=== PATIENT | female | born 1975 | race Caucasian/White ===

== ENCOUNTER → 2017-09-16 | Outpatient (CLI) | payer MEDICAID ==
[~2017-09-16] MED LIST: BISA-71 PO; CHOL100059 PO; HYDR-4225 PO; METF-410 PO; OMEP-125 PO; PRAZ1CAP26 PO; SERT-184 PO
--- NOTE | 2017-09-16 13:16 | RADIOLOGY IMAGING REPORT ---
FACILITY: [facility] PATIENT NAME: Paz Hernandez : 1975 MR: [id number] V: [id number] EXAM DATE: ORDERING PHYSICIAN: LÁZARO SMITH TECHNOLOGIST: Location: [facility] - [place] Patient: Paz Hernandez : 1975 Visit/Account:[id number] Date of Sevice: 09/16/2017 ABDOMEN PELVIS ESWL CYSTO W/O HISTORY: Renal calculi TECHNIQUE: Axial images were obtained through the abdomen and pelvis without intravenous contrast . One of the following dose optimization techniques was utilized in the performance of this exam: autom ated exposure control; adjustment of the mA and/or kv according to patient size; or use of iterative reconstruction technique. Specific details can be referenced in the facility's radiology CT exam oper ational policy. CONTRAST: None COMPARISON: CT abdomen/pelvis with contrast 11/09/2016 FINDINGS: Visualized lung bases: Negative. Hepatobiliary: Hepatomegaly measuring 19 cm in length with diffuse steatosis. Spleen: Negative. Adrenals: Negative. Pancreas: Negative. Kidneys/ureters/bladder: Mildly enlarging staghorn calculus at the junction of the mid--lower pole o f the left kidney measuring 14 x 13 x 8 mm, previously 12 x 12 x 8 mm. There are 2, stable additional small left renal calculi measuring up to 3 mm. Several punctate nonobstructing right renal calculi. No bilateral ureteral calculus. No bladder calculus. No hydronephrosis. Bowel/peritoneum/mesentery: Negative Vessels: Negative. Lymph nodes: Negative. Pelvic genitourinary: The largest right ovarian cyst has resolved. Persistent 4.5 x 3.0 x 2.9 cm righ t ovarian cyst. Bones/body wall: Mild degenerative disc disease at L5-S1. Other findings: None significant IMPRESSION: 1. Mildly enlarging left mid--lower pole staghorn renal calculus measuring 14 x 13 x 8 mm. 2. Other stable bilateral renal calculi measuring up to 3 mm. No ureteral calculus or hydronephrosis. 3. Persistent 4.5 x 3.0 x 2.9 cm right ovarian cyst which has been followed on several pelvic ultraso und examinations. Report Dictated By: Yoshi Victor MD at 09/16/2017 1:02 PM Report E-Signed By: Yoshi Victor MD at 09/16/2017 1:13 PM WSN:[id number]
== END ==
LOC: CT 02:46
PROVIDERS: ATTEND Urology
DX: N20.0 Calculus of kidney (principal); N83.201 Unspecified ovarian cyst, right side
CPT/HCPCS: 74176

== ENCOUNTER 2017-09-20 02:38 | Day surgery (SDC) | payer MEDICAID, OTHER ==
[2017-09-15 09:21] LABS: PLATELET COUNT, AUTOMATED 406 K/uL (150-450)
[2017-09-15 09:30] LABS: INR 0.91
--- NOTE | 2017-09-17 15:43 | HISTORY AND PHYSICAL ---
DATE OF ADMISSION: September 20, 2017 CHIEF COMPLAINT Kidney stones. HISTORY OF PRESENT ILLNESS The patient is a 42-year-old white female with a history of kidney stones who was referred to the Urology Clinic from [facility] for above issue. She was originally seen in the Urology Clinic in mid June. At that time, she had some trace microscopic hematuria, but no signs of infection. She had had a prior CT scan performed in October of this past year which showed several stones in the left kidney, the largest measuring 12 x 8 mm. In addition, she had a 5 x 4 and a 2 x 3. She also had two punctate stones in the right kidney. The patient states that she has had a stone since 2008 and apparently underwent left stent placement with ureteroscopy in [place] at that time. She also had some followup with a urologist. She apparently had a 24-hour urine evaluation, but is unsure of the results. She was not given any medicines. She is unable to obtain these records. Her films were shown to the patient and options discussed, and those were primarily to be a percutaneous nephrolithotomy versus ureteral stent placement with extracorporeal shock wave lithotripsy with possible staged ureteroscopy. She has elected to undergo the latter and is now being brought to the operating room for the same. PAST MEDICAL HISTORY * Noninsulin-dependent diabetes. * Hypertension. * Anxiety. * Gastroesophageal reflux disease with irritable bowel syndrome. * Polycystic ovarian disease. * Kidney stones. PAST SURGICAL HISTORY * 2008. * Left double J stent placement with extracorporeal shock wave lithotripsy 2008. * Tonsillectomy. ALLERGIES No known drug allergies. CURRENT MEDICINES * Multivitamins. * Vistaril. * Metformin. * Omeprazole. * Prazosin. * Sertraline. * Kaopectate p.r.n. FAMILY HISTORY Noncontributory. SOCIAL HISTORY The patient lives in [place], [place]. She does use tobacco, but denies ethanol or illicit drug use. REVIEW OF SYSTEMS The patient denies chest pain, shortness of breath, nausea, vomiting, fever, chills, bleeding disorder, chronic headaches, or liver disease. PHYSICAL EXAMINATION GENERAL: The patient is a moderately obese white female in no acute distress. HEENT: Normocephalic, atraumatic. CHEST: Clear to auscultation bilaterally. CARDIOVASCULAR: Regular rate and rhythm. ABDOMEN: Soft, nontender. No masses are palpated. GENITOURINARY: Deferred. EXTREMITIES: Without clubbing, cyanosis, or edema. NEUROLOGIC: Nonfocal. LABORATORY DATA WBC of 13.4 with a hematocrit of 42%, platelet count of 406,000. She has no left shift on her differential. Her PT and INR are normal. Her urinalysis reveals 7 red blood cells per high-power field with 9 WBCs per high-power field with negative bacteria. Urine culture is pending. A repeat low-dose CT scan was performed which showed approximately three punctate calcifications in the right side. Her left lower pole partial staghorn has slightly increased and now measures 14 x 13 x 8 mm in size. In addition, she has a 6 x 5 mm stone below this and a 2 mm stone in the upper pole. IMPRESSION A 42-year-old white female with a history of a kidney stone, now with left partial staghorn calculus measuring 14 mm in greatest dimension in addition to a 6 x 5 mm stone. PLAN We will perform anesthetic cystoscopy with a left stent placement, followed by extracorporeal shock wave lithotripsy. The patient understands given her stone burden, the density of her stones of approximately 1200, and her obesity, the success rate for a lithotripsy at this location will be decreased, and she will likely need a followup lithotripsy and/or a staged type of ureteroscopy to render her stone-free. SONA
[~2017-09-20] VITALS: Ht 170.2 cm; Wt 120.2 kg
[2017-09-20] MEDS ORDERED: PROPOFOL EMUL(*) 10MG/ML 20 ML 20 ML ONE (08:01)
[2017-09-20] MEDS ORDERED: LIDOCAINE MPF 1% 5 ML VIAL ONE (08:01)
[2017-09-20] MEDS ORDERED: fentaNYL CITR 100 MCG/2 ML AMP ONE ×2 (08:03→13:39)
[2017-09-20] MEDS ORDERED: FAMOTIDINE 20 MG TAB PO ONE (09:40)
[2017-09-20 09:58] VITALS: BP 141/82
[2017-09-20] MEDS ORDERED: ceFAZolin(*) 2GM/D5W 50ML 50 ML IVPB ONE (10:00)
[2017-09-20] MEDS ORDERED: MIDAZOLAM 2 MG/2 ML VIAL IVP ONE (10:00)
[2017-09-20] MEDS ORDERED: LIDOCAINE/SOD BICARB 8.4% SYR ID ONE (10:00)
[2017-09-20] MEDS ORDERED: NORMOSOL R SOLN(*) 1000 ML BAG 1,000 ML IV PRN (10:00)
[2017-09-20] MEDS ORDERED: ONDANSETRON 4 MG/2 ML VIAL ONE (11:03)
[2017-09-20] MEDS ORDERED: DEXAMETHASONE SOD PHOS 10MG/ML ONE (11:03)
[2017-09-20] MEDS ORDERED: KETAMINE HCL 200 MG/20 ML MDV ONE (12:00)
[2017-09-20] MEDS ORDERED: ePHEDrine 25 MG/5 ML DISP.SYR IVP ONE (12:27)
[2017-09-20] MEDS ORDERED: KETOROLAC 30 MG/ML VIAL ONE (12:43)
[2017-09-20] MEDS: fentaNYL CITR 100 MCG/2 ML AMP ONE (13:19)
[2017-09-20] MEDS ORDERED: BELLADONNA ALK/OPIUM 60MG SUPP PR ONE (13:21)
[2017-09-20] MEDS ORDERED: OXYBUTYNIN CHL XL 5 MG TABCR PO ONE (13:26)
[2017-09-20] MEDS ORDERED: DOCU-416 PO (13:36)
[2017-09-20] MEDS ORDERED: HYDR-4309 PO (13:36)
[2017-09-20] MEDS ORDERED: OXYB10TA21 PO (13:37)
[2017-09-20] MEDS ORDERED: TAMS0.4C25 PO (13:41)
[2017-09-20] MEDS ORDERED: PHEN200T32 PO (13:42)
[2017-09-20] MEDS ORDERED: APAP/HYDROCODONE 325/5 TAB ONE ×2 (13:51→14:53)
[2017-09-20 14:07] VITALS: BP 113/68
[2017-09-20 14:33] VITALS: BP 130/73
[2017-09-20 14:37] VITALS: BP 127/75
[2017-09-20 14:40] VITALS: BP 122/78
--- NOTE | 2017-09-21 12:20 | OPERATIVE REPORT 1 ---
EVENT DATE: September 20, 2017 SURGEON: Humberto Verma MD ANESTHESIOLOGIST: Herminio Guillen MD ANESTHESIA: General PREOPERATIVE DIAGNOSIS Left lower pole partial staghorn calculus. POSTOPERATIVE DIAGNOSIS Left lower pole partial staghorn calculus. PROCEDURE PERFORMED 1. Cystoscopy with left internal double J ureteral stent placement. 2. Left lower pole extracorporeal shockwave lithotripsy. ESTIMATED BLOOD LOSS Minimal. IV FLUIDS Crystalloids. DRAINS 6 Haitian x 26 cm Contour stent on left. COMPLICATIONS None. CONDITION Patient taken to the recovery room awake and in stable condition. STATEMENT OF MEDICAL NECESSITY Patient is a 42-year-old female who was diagnosed with a partial staghorn calculus in October of this past year. She was seen in the urology clinic approximately 6 weeks ago. her films were reviewed and options discussed. Her stone was approximately 14 mm in greatest dimension. Primary treatment options of percutaneous nephrolithotomy versus lithotripsy with possible ureteroscopy were discussed. She desired a minimally invasive procedure, and therefore has elected to undergo stent placement followed by lithotripsy with demonstrating that she may need followup ureteroscopy to be stone free. She is now being brought to the operating room for planned procedure. DESCRIPTION OF PROCEDURE PERFORMED Patient was brought to the operating room, and after general anesthetic was obtained, she was placed in the dorsal lithotomy position on the cystoscopic table and prepped and draped sterilely. Anesthetic cystoscopy was performed with the 21 Haitian rigid Craig sheath and 30 degrees lens. She had a normal- appearing urethra. Her bladder mucosa was normal with slit-like ureteral orifices. She had no bladder tumors or other lesions. The left ureteral orifice was cannulated with a 6 Haitian open end access catheter, which was advanced to approximately the mid ureter. This was then used to a place a 0.035 type sensor wire. The access catheter was removed and the wire was used to place a 6 Haitian x 26 cm Microvasive Contour stent. The wire was removed. She was noted to have good curling in the upper pole calyx by fluoroscopy and good curling in the bladder by direct vision. The patient's bladder was drained through the cystoscopic sheath. She was then repositioned supine on the table. Lithotripsy cross hairs were placed on the stone in two planes. Treatment was begun at a power setting of 1 and increased to a power setting of 3 over the first 300 shocks. A three-minute pause was then performed, and treatment resumed at a rate of 90 shocks per minute to a maximum power setting of 8. Intermittent two-plane fluoroscopy was used to ensure the cross hairs remained on the stone and stone fragment pile throughout treatment. Fragmentation was first noted at approximately 600-700 shocks. At the conclusion of treatment after 3000 shocks, no significant remaining stone fragments could be identified. At the conclusion of treatment, she was awakened in the operating room and taken to the recovery area in stable condition. The plan will be to allow the patient to be discharged home today on [place], Colace, Pyridium, Ditropan and Flomax. We will have her return to the operating room in approximately 4-6 weeks for stent removal with possible followup ureteroscopy and/or lithotripsy as indicated. SONA
== END 2017-09-20 14:07 | disposition home or self-care (01) ==
LOC: OR 02:38
PROVIDERS: ATTEND Urology
DX: N20.0 Calculus of kidney (principal); I10 Essential (primary) hypertension; E11.9 Type 2 diabetes mellitus without complications; F41.9 Anxiety disorder, unspecified; K21.9 Gastro-esophageal reflux disease without esophagitis; K58.9 Irritable bowel syndrome, unspecified; Z79.899 Other long term (current) drug therapy; E66.01 Morbid (severe) obesity due to excess calories
CPT/HCPCS: 36415; 36416; 50590; 52332; 81001; 81025; 82948; 85025; 85610; C1758; C1769; C1894; C2617; J1100; J1885; J2001; J2405; J2704; J3010; J3490; J0690

== ENCOUNTER → 2017-09-28 | Outpatient (CLI) | payer MEDICAID ==
[~2017-09-28] MED LIST changes: +DOCU-416 PO; +HYDR-4309 PO; +OXYB10TA21 PO; +PHEN200T32 PO; +TAMS0.4C25 PO
--- NOTE | 2017-09-28 10:23 | RADIOLOGY IMAGING REPORT ---
FACILITY: [facility] PATIENT NAME: Paz Hernandez : 1975 MR: [id number] V: [id number] EXAM DATE: ORDERING PHYSICIAN: LÁZARO SMITH TECHNOLOGIST: Location: [facility] Patient: Paz Hernandez : 1975 Visit/Account:[id number] Date of Sevice: 09/28/2017 Exam type: KUB SINGLE VIEW ABDOMEN History: Check stent placement Comparison: None. Findings: There is a double pigtail ureteral stent coiled over the lower pelvis presumably within the bladder. Bowel gas pattern is nonspecific. No pathologic intra-abdominal calcifications are seen. IMPRESSION: Double pigtail ureteral stent is coiled over the lower pelvis presumably within the bladder Results were called to LÁZARO SMITH at 09/28/2017 10:19 AM. Report Dictated By: Blanquita Chen MD at 09/28/2017 10:13 AM Report E-Signed By: Blanquita Chen MD at 09/28/2017 10:19 AM WSN:[id number]
--- NOTE | 2017-09-28 11:36 | RADIOLOGY IMAGING REPORT ---
FACILITY: [facility] PATIENT NAME: Paz Hernandez : 1975 MR: [id number] V: [id number] EXAM DATE: ORDERING PHYSICIAN: LÁZARO SMITH TECHNOLOGIST: Location: [facility] [place] Patient: Paz Hernandez : 1975 Visit/Account:[id number] Date of Sevice: 09/28/2017 ABDOMEN/PELVIS W/O CONTRAST HISTORY: Check stent placement TECHNIQUE: Axial images acquired through the abdomen/pelvis. Coronal and sagittal reformatting also performed. No IV contrast administered. Dose Lowering Technique One of the following dose optimization techniques was utilized in the performance of this exam: Autom ated exposure control; adjustment of the mA and/or kV according to the patient's size; or use of an i terative reconstruction technique. Specific details can be referenced in the facility's radiology C T exam operational policy. COMPARISON: September 16, 2017 FINDINGS: Visualized lung bases: Negative. Hepatobiliary: There is diffuse hepatic steatosis with hepatomegaly Spleen: Negative. Adrenals: Negative. Pancreas: Negative. Kidneys ureters and bladder: Several punctate nonobstructing calculi again seen in the right renal co llecting system. Previously noted staghorn calculus in the mid to lower pole the left kidney is no longer seen. There is a 2 mm nonobstructing calculus upper pole calyx of the left kidney too nonobstructing calculi low er pole calyces the left kidney each measuring approximately 2 mm. There is a 2 mm calculus in the d istal left ureter just proximal to the left UVJ. There is very mild fullness of the left renal colle cting system. The ureteral stent is coiled within the bladder Genitalia: 4.6 x 2.9 x 3 cm right ovarian cyst appears relatively unchanged. Probable nabothian cys ts in the cervix GI: Negative. Vessels/spaces/nodes: Negative. Bones/soft tissues: Small umbilical hernia containing fat spondylotic changes L5-S1 Additional findings: None pertinent. IMPRESSION: Producing noted left staghorn calculus is no longer seen There are three nonobstructing calculi seen in the left renal collecting system each measuring 2 mm a nd 2 mm calculus in the distal left ureter just proximal to the left UVJ producing very mild fullness of the left renal collecting system. Several punctate nonobstructing calculi again seen in the right renal collecting system Ureteral stent is coiled within the bladder 4.6 x 2.9 x 3 cm right ovarian cyst appears relatively unchanged. Diffuse hepatic steatosis with hepatomegaly. Results were called to LÁZARO SMITH at 09/28/2017 11:29 AM. Report Dictated By: Blanquita Chen MD at 09/28/2017 11:17 AM Report E-Signed By: Blanquita Chen MD at 09/28/2017 11:30 AM WSN:[id number]
== END ==
LOC: RAD 09:29
PROVIDERS: ATTEND Urology
DX: N20.0 Calculus of kidney (principal); N83.201 Unspecified ovarian cyst, right side; N88.8 Other specified noninflammatory disorders of cervix uteri; K42.9 Umbilical hernia without obstruction or gangrene; Z96.0 Presence of urogenital implants; R16.0 Hepatomegaly, not elsewhere classified
CPT/HCPCS: 74018; 74176

== ENCOUNTER 2017-09-30 01:20 | Day surgery (SDC) | payer MEDICAID ==
--- NOTE | 2017-09-29 17:59 | HISTORY AND PHYSICAL ---
DATE OF ADMISSION: September 30, 2017 CHIEF COMPLAINT Kidney stones with migrated left ureteral stent. HISTORY OF PRESENT ILLNESS Patient is a 42-year-old white female with a history of kidney stones, who was noted to have significant stone volume on a CT scan. Her largest stone was approximately 14 mm in greatest dimension, in addition to having a 5 x 5 and 3 x 3 mm stones. She was subsequently taken to the operating room on September 20, and underwent left ureteral stent placement followed by extracorporeal shock wave lithotripsy. The patient originally did extremely well postoperatively. However, on September 26, while traveling by car, she experienced significant left flank pain with more irritative voiding symptoms. Her symptoms did not improve over the next 24 hours, and she was seen in the Urology Clinic on September 28. At that time a KUB was performed which showed a distal migration of the entire stent within the bladder. She had no clearly visible stones on this x-ray. Therefore a low-dose CT scan was performed and she was noted to have almost complete resolution of her prior kidney stones. She had one to two small fragments in the left kidney, and a 2 mm fragment just at the left UVJ. The stent was seen completely curled in the bladder. Attempted stent removal by cystoscopic extraction was performed in the office on that day, however, his was aborted secondary to patient anxiety and discomfort after only 30 seconds of procedure time. She was then subsequently scheduled for OR anesthetic cystoscopy with retrieval of stent at this time. PAST MEDICAL HISTORY * Non-insulin dependent diabetes. * Hypertension. * Anxiety. * Gastroesophageal reflux disease with irritable bowel syndrome. * Polycystic ovarian disease. * Obesity. * Kidney stones. PAST SURGICAL HISTORY * in 2008. * Left double-J stent placement with extracorporeal shock wave lithotripsy in 2008. * Tonsillectomy. * Left double-J placement with extracorporeal shock wave lithotripsy on August. ALLERGIES No known drug allergies. CURRENT MEDICATIONS * Multivitamin. * Vistaril. * Metformin. * Omeprazole. * Prazosin. * Kaopectate p.r.n. * Sertraline. SOCIAL HISTORY Patient lives in [place], [place]. She reports tobacco use. FAMILY HISTORY Noncontributory. REVIEW OF SYSTEMS Patient denies chest pain, productive cough, fevers, chills, nausea, vomiting, chronic headaches or bleeding disorder. PHYSICAL EXAMINATION GENERAL: Patient is a moderately obese white female in no acute distress. HEENT: Normocephalic, atraumatic. CHEST: Clear to auscultation bilaterally. CARDIOVASCULAR: Regular rate and rhythm. ABDOMEN: Soft, nontender. No masses are palpated. GENITOURINARY: Exam deferred to the OR. EXTREMITIES: Exam without clubbing, cyanosis or edema. NEUROLOGIC: Exam is nonfocal. IMPRESSION A 42-year-old white female status post left extracorporeal shockwave lithotripsy on September 20, now with a distally migrated left ureteral stent in the bladder. PLAN We will perform anesthetic cystoscopy with removal of migrated stent from bladder. [facility]
[~2017-09-30] VITALS: Ht 170.2 cm; Wt 119.3 kg
[2017-09-30] MEDS ORDERED: NORMOSOL R SOLN(*) 1000 ML BAG 1,000 ML IV PRN (13:50)
[2017-09-30] MEDS ORDERED: LIDOCAINE/SOD BICARB 8.4% SYR ID ONE (13:50)
[2017-09-30] MEDS ORDERED: ceFAZolin(*) 1 GM VIAL 1 GM in NS(*) 0.9% 100 ML ADDVANT BAG 100 ML IV ONE (13:50)
[2017-09-30] MEDS ORDERED: MIDAZOLAM 2 MG/2 ML VIAL IVP PRN (13:50)
[2017-09-30] MEDS: FAMOTIDINE 20 MG TAB PO ONE ×2 (13:50→15:16)
[2017-09-30] MEDS ORDERED: ceFAZolin 1 GM VIAL ONE (15:04)
[2017-09-30] MEDS ORDERED: ONDANSETRON 4 MG/2 ML VIAL ONE (15:13)
[2017-09-30] MEDS ORDERED: PROPOFOL EMUL(*) 10MG/ML 20 ML 20 ML ONE (15:13)
[2017-09-30] MEDS ORDERED: fentaNYL CITR 100 MCG/2 ML AMP ONE (15:13)
[2017-09-30] MEDS ORDERED: DEXAMETHASONE SOD 4 MG/ML VIAL ONE (15:13)
[2017-09-30] MEDS ORDERED: LIDOCAINE MPF 1% 5 ML VIAL ONE (15:13)
[2017-09-30 15:30] VITALS: BP 124/86
[2017-09-30] MEDS ORDERED: BELLADONNA ALK/OPIUM 60MG SUPP PR ONE (16:46)
[2017-09-30] MEDS ORDERED: KETAMINE HCL 200 MG/20 ML MDV ONE (17:00)
[2017-09-30 17:30] VITALS: BP 107/62
--- NOTE | 2017-10-01 03:53 | OPERATIVE REPORT 1 ---
EVENT DATE: September 30, 2017 SURGEON: Humberto Verma MD ANESTHESIOLOGIST: William Hassan MD ANESTHESIA: General. PREOPERATIVE DIAGNOSIS Left migrated ureteral stent in the bladder. POSTOPERATIVE DIAGNOSIS Left migrated ureteral stent in the bladder. PROCEDURE PERFORMED Cystoscopy with grasping and removal of left distally migrated ureteral stent in bladder. ESTIMATED BLOOD LOSS Minimal. IV FLUIDS Crystalloid. DRAINS None. COMPLICATIONS None. CONDITION Patient taken to recovery room awake and in stable condition. STATEMENT OF MEDICAL NECESSITY Patient is a 42-year-old white female with a history of left kidney stones who approximately 10 days ago underwent left ureteral stent placement followed by extracorporeal shockwave lithotripsy. The patient was doing well postoperatively until this past weekend, when she experienced sudden onset of left flank pain with associated irritative voiding symptoms. When seen in the urology clinic on Wednesday, a low-dose CT scan was performed, which showed distal migration of her left ureteral stent down into the bladder. Her left stone burden was almost completely clear with only one to two small 2 mm fragments in the kidney and a 2 mm fragment at the left UVJ. Attempted stent removal in the office was aborted secondary to patient discomfort, and she is therefore being brought to the operating room now for stent removal. DESCRIPTION OF PROCEDURE PERFORMED Patient was brought to the operating room. After general anesthetic was obtained, she was placed in the dorsal lithotomy position, prepped and draped in usual sterile manner. Anesthetic cystoscopy was performed with the 21- Hungarian rigid sheath and 30 degree lens. The left stent was seen completely within the bladder after distal migration. It was grasped at one end and gently removed intact. Following this, the scope was reintroduced. There was no evidence of injury or other abnormalities. The patient's bladder was drained through the cystoscopic sheath. A B and O suppository was given per rectally at the conclusion of the case. She was awakened in the operating room and taken to the recovery area in stable condition. The plan will be to allow the patient to be discharged home. We will see her in the urology clinic in followup in approximately six to eight with a followup low-dose CT scan to evaluate treatment results and ensure she has no hydronephrosis. If she is deemed significantly stone free, we will proceed with metabolic evaluation at that time. SONA
== END 2017-09-30 17:30 | disposition home or self-care (01) ==
LOC: OR 01:20
PROVIDERS: ATTEND Urology
DX: N20.0 Calculus of kidney (principal); E11.9 Type 2 diabetes mellitus without complications
CPT/HCPCS: 36416; 52310; 81025; 82948; J0690; J1100; J2001; J2250; J2405; J2704; J3010; J3490; J7050

== ENCOUNTER → 2017-10-27 | Outpatient (CLI) | payer MEDICAID ==
[~2017-10-27] MED LIST changes: +MULT-1381 PO
[2017-10-27 12:26] LABS: LDL CHOLESTEROL 135 mg/dl
[2017-10-27 12:29] LABS: PLATELET COUNT, AUTOMATED 453 K/uL (150-450)
== END ==
LOC: LAB 11:43
PROVIDERS: ATTEND Emergency Medicine
DX: R10.819 Abdominal tenderness, unspecified site (principal); R73.03 Prediabetes; E66.01 Morbid (severe) obesity due to excess calories
CPT/HCPCS: 36415; 82040; 82247; 82310; 82374; 82435; 82465; 82565; 82947; 83036; 83718; 84075; 84132; 84155; 84295; 84443; 84450; 84460; 84478; 84520; 85025; 87338

== ENCOUNTER → 2017-10-28 | Outpatient (CLI) | payer MEDICAID | LOC: LAB 08:43 | PROVIDERS: ATTEND Emergency Medicine | DX: Z02.9 Encounter for administrative examinations, unspecified (principal) ==

== ENCOUNTER → 2017-11-12 | Outpatient (CLI) | payer MEDICAID ==
[~2017-11-12] MED LIST changes: -METF-410 PO; +METF-411 PO
--- NOTE | 2017-11-12 15:24 | RADIOLOGY IMAGING REPORT ---
FACILITY: [facility] - [place] PATIENT NAME: Paz Hernandez : 1975 MR: [id number] V: [id number] EXAM DATE: ORDERING PHYSICIAN: HU SALINAS TECHNOLOGIST: Location: [facility] [place] Patient: Paz Hernandez : 1975 Visit/Account:[id number] Date of Sevice: 11/12/2017 THYROID HISTORY: Thyroid enlargement COMPARISON: None. FINDINGS: SIZE: Right lobe: 5.2 x 1.5 x 2.4 cm Left lobe: 5.3 x 1.5 x 2.1 cm Isthmus: 5 mm PARENCHYMA: Mildly heterogeneous NODULES: Right lobe: * The superior to mid pole of the right lobe there is a well-circumscribed hypoechoic nodule measuri ng 1.2 x 0.9 x 1.1 cm area in the mid right lobe is a well-circumscribed hypoechoic nodule measuring 1.4 x 0.9 x 1.2 cm. Other subcentimeter solid nodules are identified in the right lobe. Left lobe: * There are scattered cysts and subcentimeter solid nodules identified in the left lobe and subcenti meter solid nodules identified in the isthmus Isthmus: * Subcentimeter solid nodules VASCULARITY: Within normal limits. ADDITIONAL FINDINGS: None. IMPRESSION: There are multiple bilateral thyroid nodules as described above. In the right lobe there are two hyp oechoic for which ultrasound-guided fine-needle aspiration could be performed REFERENCE: 2015 [place] [employer] Management Guidelines for Adult Patients with Thyroid Nodules and D ifferentiated Thyroid Cancer: The [place] [employer] Guidelines Task Force on Thyroid Nodul es and Differentiated Thyroid Cancer. SONOGRAPHIC PATTERNS: * Benign: Purely cystic nodules (no solid component); estimated risk of malignancy <1 percent; no bi opsy recommended. * Very Low Suspicion: Spongiform or partially cystic nodules without any of the sonographic features described in low, intermediate, or high suspicion patterns; estimated risk of malignancy <3 percent; consider FNA at > 2 cm (Observation without FNA is also a reasonable option). * Low Suspicion: Isoechoic or hyperechoic solid nodule, or partially cystic nodule with eccentric so lid areas, without microcalcification, irregular margin or ETE (extra-thyroidal extension), or taller than wide shape; estimated risk of malignancy 5-10 percent; recommend FNA at >1.5 cm. * Intermediate Suspicion: Hypoechoic solid nodule with smooth margins without microcalcifications, E TE (extra-thyroidal extension), or taller than wide shape; estimated risk of malignancy 10-20 percent ; recommend FNA at > 1 cm. * High Suspicion: Solid hypoechoic nodule or solid hypoechoic component of a partially cystic nodule with one or more of the following features: irregular margins (infiltrative, microlobulated), microc alcifications, taller than wide shape, rim calcifications with small extrusive soft tissue component, evidence of ETE (extra-thyroidal extension); estimated risk of malignancy >70-90 percent; recommend FNA at > 1 cm. NOTES: * Although a sonographically suspicious subcentimeter thyroid nodule without evidence of extrathyroi мария extension or sonographically suspicious lymph nodes may be observed with close sonographic follow -up rather than pursuing immediate FNA, patient age and preference may modify decision-making. A > 50% interval increase in nodule volume and/or development of new suspicious sonographic features are felt to be a valid reasons for potential re-aspiration of a nodule previously shown to have benig n FNA cytology. Report Dictated By: Blanquita Chen MD at 11/12/2017 3:15 PM Report E-Signed By: Blanquita Chen MD at 11/12/2017 3:21 PM WSN:[email or web address]
== END ==
LOC: US 03:12
PROVIDERS: ATTEND Emergency Medicine
DX: E04.2 Nontoxic multinodular goiter (principal)
CPT/HCPCS: 76536

== ENCOUNTER 2017-12-02 13:39 | Outpatient (RCR) | payer MEDICAID ==
[2017-12-02 08:38] LABS: PLATELET COUNT, AUTOMATED 452 K/uL (150-450)
[2017-12-02 08:46] LABS: INR 0.9
--- NOTE | 2017-12-03 12:07 | RADIOLOGY IMAGING REPORT ---
[facility] PATIENT NAME: Paz Hrenandez : 1975 MR: [id number] V: [id number] EXAM DATE: ORDERING PHYSICIAN: HU SALINAS TECHNOLOGIST: Location: [facility] [place] Patient: Paz Hernandez : 1975 Visit/Account:[id number] Date of Sevice: 12/03/2017 Ultrasound guided thyroid fine-needle aspiration Indication: Hypoechoic right thyroid nodules. Comparison: None available Findings: After informed consent was obtained, the patient was prepped and draped in the standard gisele rile sterile fashion. Local anesthesia was obtained with 1% lidocaine. 2 adjacent hypoechoic nodules are seen within the midportion of the right thyroid lobe. Attention wa s first given to the more superior and exophytic nodule. A total of 5 25-gauge fine-needle aspirates were obtained. The samples were given to a member of the pathology team for processing. Attention was then given to the more inferior and nonexophytic nodule. Total of 5 25-gauge fine-needle aspirat es were obtained. Samples were given to a member of the pathology team for processing. All needles were removed without complication. Pathologist deemed the samples adequate for interpretation. There were no immediate complications and the patient tolerated the procedure well. IMPRESSION: 1. Successful ultrasound guided fine needle aspiration of 2 adjacent hypoechoic right midpole thyroid nodules. Report Dictated By: Eamon Hernandez at 12/03/2017 12:01 PM Report E-Signed By: Eamon Hernandez at 12/03/2017 12:03 PM WSN:[id number]
[2017-12-10] MEDS ORDERED: HYDR-4225 PO (09:33)
[2017-12-10] MEDS ORDERED: FLUO-202 PO ×2 (09:33→14:48)
[2017-12-10] MEDS ORDERED: METF-411 PO (09:33)
[2017-12-10] MEDS ORDERED: LOSA-51 PO ×2 (11:03→14:48)
== END 2017-12-03 18:00 | disposition home or self-care (01) ==
LOC: US 13:39 → EDSTATUS 13:39 → US 12-03 18:00
PROVIDERS: ATTEND Emergency Medicine
DX: E04.1 Nontoxic single thyroid nodule (principal)
CPT/HCPCS: 10022; 36415; 74176; 76942; 83540; 83550; 85025; 85610; 85730; 88104; 88172

== ENCOUNTER → 2017-12-02 | Outpatient (CLI) | payer MEDICAID ==
[~2017-12-02] MED LIST changes: +DEX1 PO; +DIA5 PO
--- NOTE | 2017-12-02 13:05 | RADIOLOGY IMAGING REPORT ---
FACILITY: [facility] PATIENT NAME: Paz Hernandez : 1975 MR: [id number] V: [id number] EXAM DATE: ORDERING PHYSICIAN: LÁZARO SMITH TECHNOLOGIST: Location: Patient: Paz Hernandez : 1975 Visit/Account:[id number] Date of Sevice: 12/02/2017 ABDOMEN PELVIS ESWL CYSTO W/O HISTORY: Kidney stones TECHNIQUE: Axial images acquired through the abdomen/pelvis. Coronal and sagittal reformatting also performed. No IV contrast administered. Dose Lowering Technique One of the following dose optimization techniques was utilized in the performance of this exam: Autom ated exposure control; adjustment of the mA and/or kV according to the patient's size; or use of an i terative reconstruction technique. Specific details can be referenced in the facility's radiology C T exam operational policy. COMPARISON: CT September 28, 2017 FINDINGS: Visualized lung bases: Negative. Hepatobiliary: Hepatomegaly and diffuse hepatic steatosis. There are focal areas of fatty sparing a djacent to the falciform ligament Spleen: Negative. Adrenals: Negative. Pancreas: Negative. Kidneys ureters and bladder: There are small nonobstructing calculi seen in both renal collecting sys tems all measuring approximately 1 to 2 mm other than a single 3 mm calcification upper pole calyx of the left kidney there is no evidence of hydronephrosis or hydroureter Genitalia: Previously noted right ovarian cyst may represent two contiguous cysts and slightly incre ased in size measuring 5.3 x 3.2 x 2.9 cm GI: Negative. Vessels/spaces/nodes: Negative. Bones/soft tissues: Small umbilical hernia containing fat. Spondylotic changes L5-S1. Additional findings: None pertinent. IMPRESSION: Small nonobstructing calculi identified in the renal collecting systems bilaterally ranging in size f rom 1 to 2 mm other than a single 3 mm calcification in the upper pole of the left kidney. Previously noted right ovarian cyst may represent two contiguous cysts and slightly increased in size . Hepatomegaly with diffuse hepatic steatosis. Report Dictated By: Blanquita Chen MD at 12/02/2017 12:46 PM Report E-Signed By: Blanquita Chen MD at 12/02/2017 1:01 PM WSN:SO
== END ==
LOC: CT 00:18
PROVIDERS: ATTEND Urology
DX: N20.0 Calculus of kidney (principal); N83.201 Unspecified ovarian cyst, right side; R16.0 Hepatomegaly, not elsewhere classified; K76.0 Fatty (change of) liver, not elsewhere classified
CPT/HCPCS: 74176

== ENCOUNTER → 2017-12-11 | Outpatient (CLI) | payer MEDICAID ==
[~2017-12-11] MED LIST changes: +FLUO-202 PO; +LOSA-51 PO
== END ==
LOC: RESP 21:05
PROVIDERS: ATTEND Emergency Medicine
DX: G47.33 Obstructive sleep apnea (adult) (pediatric) (principal)

== ENCOUNTER → 2018-01-10 | Outpatient (CLI) | payer MEDICAID ==
[~2018-01-10] MED LIST changes: +CEPH500T7 PO; +CHOL10005 PO; +CHOL200074 PO; +FERR324T16 PO; +OMEP40CA48 PO
[2018-01-10 13:56] LABS: PLATELET COUNT, AUTOMATED 356 K/uL (150-450)
== END ==
LOC: LAB 13:41
PROVIDERS: ATTEND Emergency Medicine
DX: I10 Essential (primary) hypertension (principal); D72.829 Elevated white blood cell count, unspecified; L60.9 Nail disorder, unspecified
CPT/HCPCS: 36415; 82306; 82310; 82374; 82435; 82565; 82947; 83540; 83550; 84132; 84295; 84520; 85025

== ENCOUNTER 2018-01-25 00:54 | Day surgery (SDC) | payer MEDICAID ==
[~2018-01-25] VITALS: Ht 170.2 cm; Wt 119.3 kg
[~2018-01-25 00:54] MED LIST changes: +LIDOCAINE/SOD BICARB 8.4% SYR ID ONE; +NORMOSOL R SOLN(*) 1000 ML BAG 1,000 ML IV PRN
[2018-01-25 08:15] VITALS: BP 142/80
[2018-01-25] MEDS ORDERED: NORMOSOL R SOLN(*) 1000 ML BAG 1,000 ML IV PRN (09:10)
[2018-01-25] MEDS ORDERED: LIDOCAINE/SOD BICARB 8.4% SYR ID ONE (09:10)
[2018-01-25 11:20] VITALS: BP 118/58
[2018-01-25 11:24] VITALS: BP 118/58
--- NOTE | 2018-01-25 11:28 | Short(Outpt) Discharge Summary ---
Discharge Summary Reason for Hosp/Final Diag: (1) Dysphagia Status: Chronic Hospital Course & Plan: EGD partially completed but patient had retained, partially digested, food in her stomach and became an aspiration risk as she was coughing severely from the beginning of the procedure so the procedure was aborted. Her stomach and esophagus were only partially inspected and her duodenum was not inspected at all. No signs of aspiration during or after the case in spite of regurgitation during the procedure. (2) GERD (gastroesophageal reflux disease) Status: Chronic Departure Discharge to: Home, Self Care Discharge Instructions Home Meds Active Scripts Cholecalciferol (Vitamin D3) (VITAMIN D-3) 2,000 Unit Capsule, 2000 UNIT PO DAILY, #90 CAPSULE 0 Refills Prov:HU SALINAS MD 01/11/18 Cholecalciferol (Vitamin D3) (VITAMIN D3) 1,000 Unit Tablet, 1000 UNIT PO DAILY , #90 TAB 0 Refills Prov:HU SALINAS MD 01/11/18 Ferrous Sulfate (FERROUS SULFATE) 324 Mg Tablet.dr, 324 MG PO DAILY, #90 TAB 1 Refill Prov:HU SALINAS MD 01/11/18 Cephalexin 500 Mg Tab (KEFLEX 500 MG TAB) 500 Mg Tablet, 500 MG PO BID, #20 TAB Prov:HU SALINAS MD 01/10/18 Omeprazole (OMEPRAZOLE) 40 Mg Capsule.dr, 1 CAP PO BID, #60 CAP 3 Refills Take 1 capsule twice every day on an empty stomach and wait 30 minutes before eating Prov:ANGELICA JENKINS MD 12/31/17 Fluoxetine Hcl (PROZAC) 20 Mg Capsule, 20 MG PO QDAY, #30 CAPSULE 0 Refills Prov:SUN CRAWFORD DNP, FNP-GER 12/16/17 Losartan/Hydrochlorothiazide (LOSARTAN-HCTZ 50-12.5 MG TAB) 1 Each Tablet, 1 EACH PO QDAY, #30 TAB 0 Refills Prov:SUN CRAWFORD DNP, FNP-BC 12/10/17 Metformin Hcl (METFORMIN HCL) 500 Mg Tablet, 1 TAB PO BID, #180 TAB 3 Refills Prov:HU SALINAS MD 12/10/17 Reported Medications Hydroxyzine Hcl (HYDROXYZINE HCL) 25 Mg Tablet, 25 MG PO QID, TAB 12/10/17 Tamsulosin Hcl (FLOMAX) 0.4 Mg Cap.er.24h, 0.4 MG PO QDAY Y for ASSIST WITH URINE FLOW, #30 CAP TAKE WITH FOOD 09/20/17 Diet: Regular Activity: As Tolerated Special Instructions: Your upper endoscopy was only partially completed because your were severely gagging and coughing during the procedure and you had retained, partially digested, food in your stomach. Because of this, the risk of aspiration of stomach contents into your lungs became too high and so, for your safety, and since your symptoms are improving with medication, I removed the scope before thoroughly inspecting your esophagus, stomach, or duodenum. Since your symptoms are improving, I don't see the benefit of continuing with the procedure and risk giving you an aspiration pneumonia. Just continue taking the omeprazole twice each day and when you feel like you can eat without any problems then you can decrease the medication to 1 pill once first thing every morning, on an empty stomach, and wait 1/2 hour before eating. Please don't hesitate to call my office at [phone] for a follow up appointment if you feel that you continue to have symptoms or other GI issues we can help you with or if you're running low on omeprazole and you need us to submit a new prescription to your pharmacy for more omeprazole pills. Problem Qualifiers (1) Dysphagia: Dysphagia type: esophageal phase Qualified Codes: R13.10 - Dysphagia, unspecified (2) GERD (gastroesophageal reflux disease): Esophagitis presence: esophagitis presence not specified Qualified Codes: K21.9 - Gastro-esophageal reflux disease without esophagitis ANGELICA JENKINS MD Jan 25, 2018 11:28
[2018-01-25 11:30] VITALS: BP 110/77
[2018-01-25] MEDS ORDERED: LOSA-51 PO (11:37)
[2018-01-25 12:00] VITALS: BP 117/71
[2018-01-25 12:07] VITALS: BP 123/79
== END 2018-01-25 12:25 | disposition home or self-care (01) ==
LOC: OR 00:54
PROVIDERS: ATTEND Surgery
DX: K31.89 Other diseases of stomach and duodenum (principal); E11.9 Type 2 diabetes mellitus without complications
CPT/HCPCS: 36416; 82948

== ENCOUNTER → 2018-02-05 | Outpatient (CLI) | payer MEDICAID ==
[~2018-02-05] MED LIST changes: -LIDOCAINE/SOD BICARB 8.4% SYR ID ONE; -NORMOSOL R SOLN(*) 1000 ML BAG 1,000 ML IV PRN
== END ==
LOC: RESP 20:04
PROVIDERS: ATTEND Emergency Medicine
DX: G47.33 Obstructive sleep apnea (adult) (pediatric) (principal); G47.36 Sleep related hypoventilation in conditions classified elsewhere

== ENCOUNTER → 2018-02-07 | Outpatient (CLI) | payer MEDICAID ==
[~2018-02-07] MED LIST changes: +BARIUM SULFATE 176 GM BTL PO ONE; +BARIUM SULFATE 340 GM POWD ONE
--- NOTE | 2018-02-07 17:04 | RADIOLOGY IMAGING REPORT ---
FACILITY: [facility] - [place] PATIENT NAME: Paz Hernandez : 1975 MR: [id number] V: [id number] EXAM DATE: ORDERING PHYSICIAN: ANGELICA JENKINS TECHNOLOGIST: Location: [facility] Patient: Paz Hernandez : 1975 Visit/Account:[id number] Date of Sevice: 02/07/2018 Exam type: UPPER GI SERIES W/O AIR History: Feels like food gets stuck in throat especially hamburger Comparison: None. Findings: Double contrast upper GI series was performed with thick and thin barium and air contrast. A small h iatal hernia with a small Schatzki ring. No mucosal erosions identified. No other esophageal narrow ings are seen. There was a moderate amount of gastroesophageal reflux. No abnormality of the stomac h duodenal bulb or duodenal C-loop was seen. The fluoroscopy dose area product was 1270.85 micro-Gra y per meter squared IMPRESSION: 1. Small hiatal hernia with a small Schatzki ring and moderate gastroesophageal reflux Report Dictated By: Blanquita Chen MD at 02/07/2018 4:59 PM Report E-Signed By: Blanquita Chen MD at 02/07/2018 5:01 PM CRISTINAN:SO
== END ==
LOC: RAD 03:32
PROVIDERS: ATTEND Surgery
DX: K44.9 Diaphragmatic hernia without obstruction or gangrene (principal); K21.9 Gastro-esophageal reflux disease without esophagitis; K22.2 Esophageal obstruction
CPT/HCPCS: 74240

== ENCOUNTER 2018-12-19 22:37 | Emergency (ER) | payer MEDICAID ==
[~2018-12-19 22:37] MED LIST changes: -BARIUM SULFATE 176 GM BTL PO ONE; -BARIUM SULFATE 340 GM POWD ONE; -HYDR-4309 PO; +HYDR-653 PO; -METF-411 PO; +METF-450 PO; -OMEP-125 PO; +OMEP-126 PO
--- NOTE | 2018-12-19 22:45 | ER Report ---
History and Physical Time Seen By : 22:44 Hx. of Stated Complaint: HASN'T FELT WELL FOR A WEEK. TONIGHT SHE CAN'T BREATH WHEN SHE WALKS ANYWHERE HPI/ROS CHIEF COMPLAINT: cough, shortness of breath HISTORY OF PRESENT ILLNESS: This is a 43 year old female. She has not been feeling well for about 1 week now. Cough which has worsened, has episodes where she starts coughing and cannot stop, feels a little lightheaded during these and feels short of breath. Burning like razors in her central chest. Cough has been productive of clear sputum. Has felt feverish at times. No nausea or vomiting. Eating and drinking okay. No trouble with bowels. Has a CT scan scheduled for the morning with Dr. Dooley, and he has wanted her to do a strait cath urine specimen for ongoing urinary problems. Allergies: Coded Allergies: promethazine (Verified Adverse Reaction, Unknown, 12/19/18) PANIC ATTACKS Home Meds Active Scripts Guaifenesin/Codeine (GUAIFENESIN-CODEINE SYRUP) 5 Ml Syrp, 5 ML PO Q6H PRN for COUGH, #120 ML 0 Refills Prov:VINNY MEYERS MD 12/20/18 Benzonatate 100 Mg Cap (TESSALON PERLE 100 MG CAP) 100 Mg Capsule, 100 MG PO TID PRN for COUGH, #15 CAP 0 Refills Prov:VINNY MEYERS MD 12/20/18 Azithromycin (ZITHROMAX) 250 Mg Tablet, 1 TAB PO QDAY, #4 TAB 0 Refills Prov:VINNY MEYERS MD 12/20/18 Amoxicillin/Pot Clav 875-125 Mg Tab (AUGMENTIN 875-125 TABLET) 1 Each Tablet, 1 TAB PO Q12H, #20 TAB 0 Refills Prov:VINNY MEYERS MD 12/20/18 Metformin Hcl (METFORMIN HCL) 500 Mg Tablet, 2 TAB PO BID, #120 TAB 3 Refills Prov:HU SALINAS MD 06/24/18 Losartan/Hydrochlorothiazide (LOSARTAN-HCTZ 50-12.5 MG TAB) 1 Each Tablet, 1 TAB PO QDAY for 90 Days, #90 TAB 1 Refill Prov:HU SALINAS MD 06/23/18 Hydroxyzine Hcl (HYDROXYZINE HCL) 25 Mg Tablet, 25 MG PO TID PRN for ANXIETY for 90 Days, #180 TAB 1 Refill Prov:HU SALINAS MD 06/23/18 Tamsulosin Hcl (FLOMAX) 0.4 Mg Cap.er.24h, 0.4 MG PO QDAY PRN for ASSIST WITH URINE FLOW, #90 CAP 1 Refill TAKE WITH FOOD Prov:HU SALINAS MD 06/23/18 Fluoxetine Hcl (PROZAC) 20 Mg Capsule, 20 MG PO QDAY, #30 CAPSULE 11 Refills Prov:HU SALINAS MD 04/20/18 Cholecalciferol (Vitamin D3) (VITAMIN D-3) 2,000 Unit Capsule, 2000 UNIT PO DAILY, #90 CAPSULE 0 Refills Prov:HU SALINAS MD 01/11/18 Cholecalciferol (Vitamin D3) (VITAMIN D3) 1,000 Unit Tablet, 1000 UNIT PO DAILY, #90 TAB 0 Refills Prov:HU SALINAS MD 01/11/18 Ferrous Sulfate (FERROUS SULFATE) 324 Mg Tablet.dr, 324 MG PO DAILY, #90 TAB 1 Refill Prov:HU SALINAS MD 01/11/18 Omeprazole (OMEPRAZOLE) 40 Mg Capsule.dr, 1 CAP PO BID, #60 CAP 3 Refills Take 1 capsule twice every day on an empty stomach and wait 30 minutes before eating Prov:ANGELICA JENKINS MD 12/31/17 Reviewed Nurses Notes: Yes Hx Smoking: Yes (4-5 DAILY IN PROCESS OF TRYING TO QUIT) Smoking Status: Current: Every Day Smoker Exposure to Second Hand Smoke?: No Hx Alcohol Use: Yes Constitutional Vital Sign - Last 24 Hours 12/19/18 12/19/18 12/19/18 12/19/18 22:40 22:42 22:52 23:00 Temp 99.3 Pulse 102 94 Resp 26 18 B/P (MAP) 139/81 (100) 139/81 125/82 (96) Pulse Ox 92 95 O2 Delivery Room Air 12/19/18 12/19/18 12/19/18 12/19/18 23:07 23:22 23:37 23:52 Pulse 92 92 95 89 Resp 11 13 15 14 Pulse Ox 96 95 95 12/20/18 12/20/18 12/20/18 12/20/18 00:07 00:12 00:28 00:42 Pulse 93 89 104 Resp 10 10 B/P (MAP) 156/89 (111) Pulse Ox 95 96 94 12/20/18 12/20/18 12/20/18 12/20/18 00:57 01:00 01:05 01:30 Pulse ??? 104 B/P (MAP) 135/83 (100) 141/71 (94) Pulse Ox 91 93 12/20/18 12/20/18 12/20/18 12/20/18 01:35 02:00 02:05 02:20 Pulse 98 100 100 B/P (MAP) 134/82 (99) Pulse Ox 86 92 12/20/18 02:35 Pulse ??? Intake and Output 12/19/18 12/19/18 12/20/18 15:01 23:01 07:01 Intake Total 1350 ml Balance 1350 ml Physical Exam General Appearance: The patient is alert. No acute distress. Eyes: Pupils are equal, round. No pallor, injection or icterus. ENT: Mucous membranes are moist. Normal oral mucosa. Posterior oropharynx is normal. Neck: Supple and non tender. Respiratory: Breathing shallowly due to trying to avoid coughing. Lungs with some rhonchi, but no wheezing or rales appreciated. Cardiovascular: Regular rate and rhythm. No murmurs, gallops or rubs. Normal capillary refill. No edema. Gastrointestinal: Abdomen is soft and non tender. Nondistended. Normal active bowel sounds. Neurological: Alert and oriented x3. No focal neurologic deficits Skin: Warm and dry. No rashes. Musculoskeletal: Extremities are nontender. No pain with palpation of the chest wall. No tenderness in palpation of the back and spine. DIFFERENTIAL DIAGNOSIS: After history and physical exam, differential diagnosis was considered for shortness of breath including but not limited to pulmonary infectious process, COPD, asthma, pulmonary embolus and congestive heart failure. Medical Decision Making Data Points Result Diagram: 12/19/18 2254 12/19/18 225 Laboratory Hematology Test 12/19/18 22:54 12/20/18 00:24 Red Blood Count 4.18 M/uL (4.17-5.56) Mean Corpuscular Volume 88.6 fL (80.0-96.0) Mean Corpuscular Hemoglobin 30.8 pg (26.0-33.0) Mean Corpuscular Hemoglobin Concent 34.8 g/dL (32.0-36.0) Red Cell Distribution Width 13.9 % (11.5-14.5) Mean Platelet Volume 6.5 fL (7.2-11.1) Neutrophils (%) (Auto) 72.0 % (39.4-72.5) Lymphocytes (%) (Auto) 18.8 % (17.6-49.6) Monocytes (%) (Auto) 6.1 % (4.1-12.4) Eosinophils (%) (Auto) 2.6 % (0.4-6.7) Basophils (%) (Auto) 0.5 % (0.3-1.4) Nucleated RBC Relative Count (auto) 0.0 /100WBC Neutrophils # (Auto) 12.6 K/uL (2.0-7.4) Lymphocytes # (Auto) 3.3 K/uL (1.3-3.6) Monocytes # (Auto) 1.1 K/uL (0.3-1.0) Eosinophils # (Auto) 0.5 K/uL (0.0-0.5) Basophils # (Auto) 0.1 K/uL (0.0-0.1) Nucleated RBC Absolute Count (auto) 0.00 K/uL D-Dimer Quantitative (PE/DVT) 0.30 ug/ml (0-0.50) Sodium Level 142 mmol/L (137-145) Potassium Level 4.1 mmol/L (3.5-5.0) Chloride Level 107 mmol/L (98-107) Carbon Dioxide Level 19 mmol/L (22-31) Blood Urea Nitrogen 15 mg/dl (7-18) Creatinine 1.10 mg/dl (0.52-1.04) Glomerular Filtration Rate Calc 53.7 Random Glucose 81 mg/dl (75-110) Calcium Level 9.5 mg/dl (8.4-10.2) Total Bilirubin 0.4 mg/dl (0.2-1.3) Aspartate Amino Transf (AST/SGOT) 25 U/L (0-35) Alanine Aminotransferase (ALT/SGPT) 32 U/L (0-56) Alkaline Phosphatase 61 U/L (0-126) Troponin I < 0.012 ng/ml Total Protein 7.2 g/dl (6.3-8.2) Albumin 3.9 g/dl (3.5-5.0) Urine Color Yellow Urine Clarity Clear Urine pH 6.0 pH (4.8-9.5) Urine Specific [place] 1.020 Urine Protein Negative mg/dL (NEGATIVE) Urine Glucose (UA) Negative mg/dL (NEGATIVE) Urine Ketones Negative mg/dL (NEGATIVE) Urine Blood Negative (NEGATIVE) Urine Nitrite Negative (NEGATIVE) Urine Bilirubin Negative (NEGATIVE) Urine Urobilinogen Negative mg/dL (0.2-1.9) Urine Leukocyte Esterase Negative (NEGATIVE) Urine RBC <1 /HPF (0-2/HPF) Urine WBC 4 /HPF (0-5/HPF) Urine Squamous Epithelial Cells Many /LPF (</=FEW) Urine Transitional Epithelial Cells Few /LPF (NONE-FEW) Urine Bacteria Negative /HPF (NONE-FEW) Urine Mucus Few /HPF (NONE-FEW) Chemistry Test 12/19/18 22:54 12/20/18 00:24 White Blood Count 17.5 k/uL (4.5-11.0) Red Blood Count 4.18 M/uL (4.17-5.56) Hemoglobin 12.9 g/dL (12.0-16.0) Hematocrit 37.0 % (34.0-47.0) Mean Corpuscular Volume 88.6 fL (80.0-96.0) Mean Corpuscular Hemoglobin 30.8 pg (26.0-33.0) Mean Corpuscular Hemoglobin Concent 34.8 g/dL (32.0-36.0) Red Cell Distribution Width 13.9 % (11.5-14.5) Platelet Count 472 K/uL (150-450) Mean Platelet Volume 6.5 fL (7.2-11.1) Neutrophils (%) (Auto) 72.0 % (39.4-72.5) Lymphocytes (%) (Auto) 18.8 % (17.6-49.6) Monocytes (%) (Auto) 6.1 % (4.1-12.4) Eosinophils (%) (Auto) 2.6 % (0.4-6.7) Basophils (%) (Auto) 0.5 % (0.3-1.4) Nucleated RBC Relative Count (auto) 0.0 /100WBC Neutrophils # (Auto) 12.6 K/uL (2.0-7.4) Lymphocytes # (Auto) 3.3 K/uL (1.3-3.6) Monocytes # (Auto) 1.1 K/uL (0.3-1.0) Eosinophils # (Auto) 0.5 K/uL (0.0-0.5) Basophils # (Auto) 0.1 K/uL (0.0-0.1) Nucleated RBC Absolute Count (auto) 0.00 K/uL D-Dimer Quantitative (PE/DVT) 0.30 ug/ml (0-0.50) Glomerular Filtration Rate Calc 53.7 Calcium Level 9.5 mg/dl (8.4-10.2) Total Bilirubin 0.4 mg/dl (0.2-1.3) Aspartate Amino Transf (AST/SGOT) 25 U/L (0-35) Alanine Aminotransferase (ALT/SGPT) 32 U/L (0-56) Alkaline Phosphatase 61 U/L (0-126) Troponin I < 0.012 ng/ml Total Protein 7.2 g/dl (6.3-8.2) Albumin 3.9 g/dl (3.5-5.0) Urine Color Yellow Urine Clarity Clear Urine pH 6.0 pH (4.8-9.5) Urine Specific [place] 1.020 Urine Protein Negative mg/dL (NEGATIVE) Urine Glucose (UA) Negative mg/dL (NEGATIVE) Urine Ketones Negative mg/dL (NEGATIVE) Urine Blood Negative (NEGATIVE) Urine Nitrite Negative (NEGATIVE) Urine Bilirubin Negative (NEGATIVE) Urine Urobilinogen Negative mg/dL (0.2-1.9) Urine Leukocyte Esterase Negative (NEGATIVE) Urine RBC <1 /HPF (0-2/HPF) Urine WBC 4 /HPF (0-5/HPF) Urine Squamous Epithelial Cells Many /LPF (</=FEW) Urine Transitional Epithelial Cells Few /LPF (NONE-FEW) Urine Bacteria Negative /HPF (NONE-FEW) Urine Mucus Few /HPF (NONE-FEW) Coagulation Test 12/19/18 22:54 D-Dimer Quantitative (PE/DVT) 0.30 ug/ml Urinalysis Test 12/20/18 00:24 Urine Color Yellow Urine Clarity Clear Urine pH 6.0 pH (4.8-9.5) Urine Specific [place] 1.020 Urine Protein Negative mg/dL (NEGATIVE) Urine Glucose (UA) Negative mg/dL (NEGATIVE) Urine Ketones Negative mg/dL (NEGATIVE) Urine Blood Negative (NEGATIVE) Urine Nitrite Negative (NEGATIVE) Urine Bilirubin Negative (NEGATIVE) Urine Urobilinogen Negative mg/dL (0.2-1.9) Urine Leukocyte Esterase Negative (NEGATIVE) Urine RBC <1 /HPF (0-2/HPF) Urine WBC 4 /HPF (0-5/HPF) Urine Squamous Epithelial Cells Many /LPF (</=FEW) Urine Transitional Epithelial Cells Few /LPF (NONE-FEW) Urine Bacteria Negative /HPF (NONE-FEW) Urine Mucus Few /HPF (NONE-FEW) EKG/Imaging EKG Interpretation 12 lead EKG: Rhythm: normal sinus rhythm, rate 91 [place]: normal QRS: normal ST segments: normal Imaging AP CHEST 12/19/2018 10:52 PM. INDICATION: Short of breath. COMPARISON: None. FINDINGS: Lungs are well-expanded. Vague patchy opacity over the right mid-lower lung. No definite pulmonary edema. No pleural effusion or pneumothorax. Heart size is normal. IMPRESSION: Patchy opacity over the right mid to lower lung could represent pneumonia in the appropriate setting. Otherwise unremarkable. Report Dictated By: Kenneth Gilmore MD at 12/19/2018 11:35 PM ED Course/Re-evaluation Clinical Indication for ER IV: Hydration, IV Access ED Course Leukocytosis on CBC, mild dehydration with elevated BUN/creatinine to creatinine ratio. Chest x-ray suggests right sided pneumonia as noted above. Temperature is mildly elevated but not quite a fever. Reviewed all this with the patient and we'll go ahead and treat for pneumonia, community-acquired. We'll need to get her urine sample done that was posted be done later this morning prior to giving her antibiotics. We'll start her on a liter of normal saline here as well as a dose of Rocephin 1 g IV and a dose of a azithromycin 500 mg IV. We gave her a dose of benzonatate 100 mg to help with the cough which helped a little bit, this was followed by guaifenesin with codeine as well. Discussed admission versus going home and offered either one of these, she would prefer to try and go home at this time. Decision to Disposition Date: Dec 20, 2018 Decision to Disposition Time: 02:19 Depart Departure Latest Vital Signs Vital Signs Date Time Temp Pulse Resp B/P (MAP) Pulse Ox O2 Delivery O2 Flow Rate FiO2 12/20/18 02:35 ??? 12/20/18 02:20 92 12/20/18 02:00 134/82 (99) 12/20/18 00:12 10 12/19/18 22:42 99.3 Room Air Impression: Primary Impression: Community acquired bacterial pneumonia Condition: Improved Disposition: HOME OR SELF-CARE Referrals: HU SALINAS MD (PCP) New Scripts Guaifenesin/Codeine (GUAIFENESIN-CODEINE SYRUP) 5 Ml Syrp 5 ML PO Q6H PRN for COUGH, #120 ML 0 Refills Prov: VINNY MEYERS MD 12/20/18 Benzonatate 100 Mg Cap (TESSALON PERLE 100 MG CAP) 100 Mg Capsule 100 MG PO TID PRN for COUGH, #15 CAP 0 Refills Prov: VINNY MEYERS MD 12/20/18 Azithromycin (ZITHROMAX) 250 Mg Tablet 1 TAB PO QDAY, #4 TAB 0 Refills Prov: VINNY MEYERS MD 12/20/18 Amoxicillin/Pot Clav 875-125 Mg Tab (AUGMENTIN 875-125 TABLET) 1 Each Tablet 1 TAB PO Q12H, #20 TAB 0 Refills Prov: VINNY MEYERS MD 12/20/18 Patient Instructions: Community Acquired Pneumonia (ED) Additional Instructions: A azithromycin 250 mg once a day for 4 days. Augmentin 875/125 twice a day for 10 days. Benzonatate 100 mg, 3 times a day as needed for cough. Guaifenesin with codeine syrup, 1 teaspoon every 4 hours as needed for severe cough. Rest and increase fluid intake. Return if worsening symptoms such as fevers, shortness of breath. VINNY MEYERS MD Dec 19, 2018 22:45
[2018-12-19] MEDS ORDERED: BENZONATATE 100 MG CAP PO ONE (22:55)
--- NOTE | 2018-12-19 23:10 | EKG ---
FACILITY: [facility] PATIENT NAME: MARILUZ BARONE : [id number] MR: [id number] V: [id number] EXAM DATE: ORDERING PHYSICIAN: VINNY MEYERS TECHNOLOGIST: DARLENE Test Reason : SOB Blood Pressure : / mmHG Vent. Rate : 091 BPM Atrial Rate : 091 BPM P-R Int : 144 ms QRS Dur : 080 ms QT Int : 360 ms P-R-T Axes : 004 004 -04 degrees QTc Int : 442 ms Normal sinus rhythm Normal ECG No previous ECGs available Confirmed by ANGELICA NEGRON ([id number]) on 12/20/2018 6:25:41 AM Referred By: Confirmed By:ANGELICA NEGRON
[2018-12-19 23:20] LABS: PLATELET COUNT, AUTOMATED 472 K/uL (150-450)
--- NOTE | 2018-12-19 23:43 | RADIOLOGY IMAGING REPORT ---
FACILITY: [facility] - [place] PATIENT NAME: Paz Hernandez : 1975 MR: [id number] V: [id number] EXAM DATE: ORDERING PHYSICIAN: VINNY MEYERS TECHNOLOGIST: Location: [facility] - [place] Patient: Paz Hernandez : 1975 Visit/Account:[id number] Date of Sevice: 12/19/2018 AP CHEST 12/19/2018 10:52 PM. INDICATION: Short of breath. COMPARISON: None. FINDINGS: Lungs are well-expanded. Vague patchy opacity over the right mid-lower lung. No definite pulmonary edema. No pleural effusion or pneumothorax. Heart size is normal. IMPRESSION: Patchy opacity over the right mid to lower lung could represent pneumonia in the appropri ate setting. Otherwise unremarkable. Report Dictated By: Kenneth Gilmore MD at 12/19/2018 11:35 PM Report E-Signed By: Kenneth Gilmore MD at 12/19/2018 11:37 PM WSN:[id number]
[2018-12-20] MEDS ORDERED: NS(*) 0.9% 1000 ML BAG 1,000 ML IV ONE (00:10)
[2018-12-20] MEDS ORDERED: cefTRIAXone(*) 1 GM VIAL 1 GM in NS(*) 0.9% 100 ML MINI-BAG 100 ML IVPB ONE (00:10)
[2018-12-20] MEDS ORDERED: AZITHROMYCIN(*) 500 MG 500 MG in NS(*) 0.9% 250 ML BAG 250 ML IVPB ONE (00:10)
[2018-12-20] MEDS ORDERED: guaiFENesin/CODEINE 5 ML UDBTL PO ONE ×2 (00:35→02:25)
[2018-12-20 02:00] VITALS: BP 134/82
[2018-12-20] MEDS ORDERED: ROBC PO (02:23)
[2018-12-20] MEDS ORDERED: AZIT-1 PO (02:23)
[2018-12-20] MEDS ORDERED: BENZ100C4 PO (02:23)
[2018-12-20] MEDS ORDERED: AMOX-559 PO (02:23)
[2018-12-20] MEDS ORDERED: BENZONATATE 100 MG CAP PO ONE (02:25)
[2018-12-20] MEDS ORDERED: ALBUTEROL 8 GM INHALER INH ONE (02:40)
== END 2018-12-20 02:30 | disposition home or self-care (01) ==
LOC: ER 22:45
DX: J15.9 Unspecified bacterial pneumonia (principal)
CPT/HCPCS: 36415; 71045; 81001; 84484; 85025; 85379; 87040; 87088; 93005; 94640; 96365; 96366; 96375; 99284; J0456; J0696; J7030; J7050; 82040; 82247; 82310; 82374; 82435; 82565; 82947; 84075; 84132; 84155; 84295; 84450; 84460; 84520